=== PATIENT | female | born 1940 | race Two or more races ===

== ENCOUNTER → 2017-04-22 | Outpatient (REF) | payer MEDICARE, MEDICAID | LOC: M LABNEURO 11:16 | PROVIDERS: ATTEND Psychiatry & Neurology Neurology | DX: Z13.29 Encounter for screening for other suspected endocrine disorder (principal); Z13.21 Encounter for screening for nutritional disorder ==

== ENCOUNTER → 2017-05-03 | Outpatient (CLI) | payer MEDICARE, MEDICAID ==
--- NOTE | 2017-05-03 11:42 | REPMRS ---
Patient History The patient states she had a clinical breast exam in 04/2017. Patient is postmenopausal. Family history of colorectal cancer in mother. Digital Woman Screen Mammo: May 03, 2017 - Exam #: [id number] Bilateral CC and MLO view(s) were taken. Technologist: Cassi Jaar, Technologist Prior study comparison: March 23, 2016, digital woman screen mammo performed at [facility] to [facility]. March 14, 2015, digital woman screen mammo performed at [facility] to [facility]. FINDINGS: There are scattered fibroglandular densities. There has been no change in the appearance of the mammogram from the prior studies. There is a mild amount of residual fibroglandular tissue which is fairly symmetric. There is no interval development of dominant mass, architectural distortion, or clustered microcalcification suggestive of malignancy. ASSESSMENT: BI-RADS/ACR category 1 mammogram. Negative. Recommendation Routine screening mammogram in 1 year (for women over age 40). This mammogram was interpreted with the aid of an FDA-approved computer-aided dectection system. Electronically Signed By: Angel Hayes MD 05/03/17 [id number]
== END ==
LOC: M WHC 10:16
PROVIDERS: ATTEND Nurse Practitioner Family
DX: Z01.419 Encounter for gynecological examination (general) (routine) without abnormal findings (principal); Z12.31 Encounter for screening mammogram for malignant neoplasm of breast; Z78.0 Asymptomatic menopausal state; Z12.12 Encounter for screening for malignant neoplasm of rectum
CPT/HCPCS: 82270; G0101; G0202

== ENCOUNTER → 2017-07-26 | Outpatient (CLI) | payer MEDICARE, MEDICAID ==
--- NOTE | 2017-07-26 16:18 | REP ---
Left ankle four views: There is circumferential soft tissue edema. There is no fracture or dislocation. No calcifications or foreign bodies. Impression: Circumferential soft tissue edema. No fracture. Signed by Angel Guerrero MD 07/26/2017 04:09 P
[2017-07-26 17:56] LABS: BASO # 0.1 10^3/uL (0.0-0.2); BASO % 1.1 % (0.0-1.0); EOS # 0.1 10^3/uL (0.0-0.50); EOS % 1.4 % (0.0-3.0); IMMATURE GRANULOCYTE % 0.3 % (0-0); MEAN CORPUSCULAR HEMOGLOBIN 31.2 pg (27.0-33.0); MEAN CORPUSCULAR HGB CONC 33.7 g/dl (32.0-36.5); MEAN CORPUSCULAR VOLUME 92.8 fl (80.0-96.0); MONO # 0.7 10^3/uL (0.0-0.8); MONO % 10.7 % (0.0-5.0); NEUTROPHILS # 3.5 10^3/uL (1.8-7.7); NEUTROPHILS % 54.5 % (36.0-66.0); PLATELET COUNT, AUTOMATED 266 10^3/uL (150-450); RED CELL DISTRIBUTION WIDTH 12.8 % (11.5-14.5); WHITE BLOOD COUNT 6.4 10^3/uL (4.0-10.0)
[2017-07-26 18:14] LABS: ALBUMIN 3.9 GM/DL (3.2-5.2); ALBUMIN/GLOBULIN RATIO 1.39 (1.00-1.93); ALKALINE PHOSPHATASE 93 U/L (45-117); ALT/SGPT 20 U/L (12-78); ANION GAP 7 MEQ/L (8-16); AST/SGOT 21 U/L (7-37); BILIRUBIN,TOTAL 0.2 MG/DL (0.2-1.0); BLOOD UREA NITROGEN 26 MG/DL (7-18); CALCIUM LEVEL 9.5 MG/DL (8.8-10.2); CARBON DIOXIDE LEVEL 30 MEQ/L (21-32); CHLORIDE LEVEL 105 MEQ/L (98-107); CREATININE FOR GFR 0.78 MG/DL (0.55-1.02); FREE T4 1.03 NG/DL (0.76-1.46); GLOMERULAR FILTRATION RATE > 60.0 (>39); GLUCOSE, FASTING 97 MG/DL (83-110); POTASSIUM SERUM 4.6 MEQ/L (3.5-5.1); SODIUM LEVEL 142 MEQ/L (136-145); TOTAL PROTEIN 6.7 GM/DL (6.4-8.2)
== END ==
LOC: M WUC 14:44
PROVIDERS: ATTEND Family Medicine
DX: M25.472 Effusion, left ankle (principal); E03.9 Hypothyroidism, unspecified; R60.9 Edema, unspecified

== ENCOUNTER → 2018-01-09 | Outpatient (CLI) | payer MEDICARE, MEDICAID ==
[2018-01-09 14:26] LABS: THYROID STIMULATING HORMONE 0.901 uIU/ML (0.358-3.740)
[2018-01-09 14:26] LABS: FREE T3 2.5 PG/ML (2.2-4.0)
== END ==
LOC: M SMT 11:03
DX: E03.9 Hypothyroidism, unspecified (principal)
CPT/HCPCS: 84443

== ENCOUNTER → 2018-08-01 | Outpatient (CLI) | payer MEDICARE, MEDICAID ==
--- NOTE | 2018-08-01 11:20 | REPMRS ---
Patient History The patient states she had a clinical breast exam in 07/29 Family history of colorectal cancer in mother. Digital Woman Screen Mammo: August 01, 2018 - Exam #: [id number] Bilateral CC and MLO view(s) were taken. Technologist: Babita Fairas, Technologist Prior study comparison: May 03, 2017, digital woman screen mammo performed at [facility]. March 23, 2016, digital woman screen mammo performed at [facility]. March 14, 2015, digital woman screen mammo performed at [facility]. FINDINGS: The breast tissue is heterogeneously dense. This may lower the sensitivity of mammography. There is a moderate amount of heterogeneously dense fibroglandular tissue which is fairly symmetric. There is no interval development of dominant mass, architectural distortion, or clustered microcalcification typical of malignancy. There has been no change in the appearance of the mammogram from the prior studies. 3-D tomosynthesis shows no additional findings. Assessment: BI-RADS/ACR category 1 mammogram. Negative. Recommendation Routine screening mammogram of both breasts in 1 year (for women over age 40). This patient's Lifetime Breast Cancer RIsk is estimated at 2.7 %. This mammogram was interpreted with the aid of an FDA-approved computer-aided dectection system. Electronically Signed By: Paul Robles MD 08/01/18 1330
== END ==
LOC: M WHC 08:14
PROVIDERS: ATTEND Nurse Practitioner Family
DX: Z01.419 Encounter for gynecological examination (general) (routine) without abnormal findings (principal); Z12.31 Encounter for screening mammogram for malignant neoplasm of breast; Z80.0 Family history of malignant neoplasm of digestive organs; Z12.12 Encounter for screening for malignant neoplasm of rectum
CPT/HCPCS: 77063; 77067; 82270; G0101

== ENCOUNTER → 2019-04-22 | Outpatient (REF) | payer MEDICARE, MEDICAID ==
[2019-04-22 12:08] LABS: HEMATOCRIT 44.6 % (36.0-47.0); HEMOGLOBIN 14.9 g/dl (12.0-15.5); MEAN CORPUSCULAR HEMOGLOBIN 31.2 pg (27.0-33.0); MEAN CORPUSCULAR HGB CONC 33.4 g/dl (32.0-36.5); MEAN CORPUSCULAR VOLUME 93.3 fl (80.0-96.0); PLATELET COUNT, AUTOMATED 246 10^3/uL (150-450); RED BLOOD COUNT 4.78 10^6/uL (4.00-5.40)
[2019-04-22 12:44] LABS: ALT/SGPT 25 U/L (12-78); BILIRUBIN,TOTAL 0.4 MG/DL (0.2-1.0); BLOOD UREA NITROGEN 20 MG/DL (7-18); CALCIUM LEVEL 10.6 MG/DL (8.8-10.2); CARBON DIOXIDE LEVEL 30 MEQ/L (21-32); CHLORIDE LEVEL 105 MEQ/L (98-107); CREATININE FOR GFR 0.77 MG/DL (0.55-1.30); FREE T3 2.2 PG/ML (2.2-4.0); FREE T4 1.03 NG/DL (0.76-1.46); GLOMERULAR FILTRATION RATE > 60.0 (>39); GLUCOSE, FASTING 74 MG/DL (70-100); POTASSIUM SERUM 4.3 MEQ/L (3.5-5.1); SODIUM LEVEL 142 MEQ/L (136-145); TOTAL 25(OH) VITAMIN D 36.4 NG/ML (30.0-100.0); TOTAL PROTEIN 6.8 GM/DL (6.4-8.2)
[2019-04-22 12:45] LABS: VITAMIN B12 LEVEL > 2000 PG/ML (247-911)
== END ==
LOC: SKLABADC 10:26
PROVIDERS: ATTEND Family Medicine
DX: E55.9 Vitamin D deficiency, unspecified (principal); F03.90 Unspecified dementia, unspecified severity, without behavioral disturbance, psychotic disturbance, mood disturbance, and anxiety; E53.8 Deficiency of other specified B group vitamins; E03.9 Hypothyroidism, unspecified

== ENCOUNTER → 2019-08-06 | Outpatient (CLI) | payer MEDICAID, MEDICARE, OTHER ==
--- NOTE | 2019-08-06 12:08 | REPMRS ---
Patient History The patient states she had a clinical breast exam in July 2019.Family history of colorectal cancer in mother. 3D TOMOSYNTHESIS WAS PERFORMED. [facility] lifetime risk for breast cancer is 2.4%. Digital Woman Screen Mammo: August 06, 2019 - Exam #: [id number] Bilateral CC and MLO view(s) were taken. Technologist: Minda Scott, Technologist Prior study comparison: August 01, 2018, bilateral digital woman screen mammo performed at [facility] [place]. May 03, 2017, digital woman screen mammo performed at [facility] [place]. FINDINGS: There are scattered fibroglandular densities. There has been no change in the appearance of the mammogram from the prior studies. There is a mild amount of residual fibroglandular tissue which is fairly symmetric. There is no interval development of dominant mass, architectural distortion, or clustered microcalcification suggestive of malignancy. Assessment: BI-RADS/ACR category 1 mammogram. Negative Mammogram. Recommendation Routine screening mammogram in 1 year (for women over age 40). This mammogram was interpreted with the aid of an FDA-approved computer-aided dectection system. Electronically Signed By: Angel Hayes MD 08/06/19 [id number]
== END ==
LOC: M WHC 09:31
PROVIDERS: ATTEND Nurse Practitioner Family
DX: Z01.419 Encounter for gynecological examination (general) (routine) without abnormal findings (principal); Z12.31 Encounter for screening mammogram for malignant neoplasm of breast; Z80.0 Family history of malignant neoplasm of digestive organs; Z12.12 Encounter for screening for malignant neoplasm of rectum
CPT/HCPCS: 77063; 77067; 82270; G0101

== ENCOUNTER → 2019-08-17 | Outpatient (REF) | payer MEDICARE ==
[2019-08-17 14:15] LABS: FREE T4 1.15 NG/DL (0.76-1.46); THYROID STIMULATING HORMONE 3.39 uIU/ML (0.358-3.740)
== END ==
LOC: SKLABADC 11:45
PROVIDERS: ATTEND Family Medicine
DX: E03.9 Hypothyroidism, unspecified (principal)

== ENCOUNTER → 2020-08-09 | Outpatient (CLI) | payer MEDICARE ==
--- NOTE | 2020-08-09 10:42 | REPMRS ---
Patient History The patient states she had a clinical breast exam in 07/2020 Family history of colorectal cancer in mother. Digital Woman Screen Mammo: August 09, 2020 - Exam #: [id number] Bilateral CC and MLO view(s) were taken. Technologist: Babita Farias, Technologist Prior study comparison: August 06, 2019, bilateral digital woman screen mammo performed at [facility]. August 01, 2018, bilateral digital woman screen mammo performed at [facility]. May 03, 2017, digital woman screen mammo performed at [facility]. FINDINGS: There are scattered fibroglandular densities. The Volpara volumetric breast density category is:B. There has been no change in the appearance of the mammogram from the prior studies. There is a mild amount of scattered fibroglandular density which is fairly symmetric. There is no interval development of dominant mass, architectural distortion, or grouped microcalcification suggestive of malignancy. 3-D tomosynthesis shows no additional findings. Assessment: BI-RADS/ACR category 1 mammogram. Negative Mammogram. Recommendation Routine screening mammogram of both breasts in 1 year (for women over age 40). This patient's [facility] Lifetime Breast Cancer Risk is estimated at 2.1 %. This mammogram was interpreted with the aid of an FDA-approved computer-aided dectection system. Electronically Signed By: Paul Robles MD 08/09/20 [id number]
== END ==
LOC: M WHC 09:07
PROVIDERS: ATTEND Nurse Practitioner Family
DX: Z01.419 Encounter for gynecological examination (general) (routine) without abnormal findings (principal); Z12.31 Encounter for screening mammogram for malignant neoplasm of breast; Z80.0 Family history of malignant neoplasm of digestive organs; Z12.12 Encounter for screening for malignant neoplasm of rectum
CPT/HCPCS: 77063; 77067; 82270; G0101

== ENCOUNTER 2020-08-19 00:15 | Observation (INO) | payer MEDICARE, MEDICAID ==
[~2020-08-19] VITALS: Ht 170.2 cm; Wt 70.5 kg
[2020-08-19] MEDS ORDERED: LEVO88TA3 (00:39)
--- NOTE | 2020-08-19 02:33 | REPVR ---
PROCEDURE INFORMATION: Exam: XR Complete Acute Abdomen Series Exam date and time: 08/19/2020 1:58 AM Age: 80 years old Clinical indication: Abdominal pain; Additional info: Abd pain TECHNIQUE: Imaging protocol: XR complete acute abdomen series, including 2 or more views of the abdomen and a single view chest. COMPARISON: No relevant prior studies available. FINDINGS: Lungs: Normal. No consolidation. Pleural space: Normal. No pneumothorax. Heart/Mediastinum: Normal. No cardiomegaly. Gastrointestinal tract: Mild gas in the GI tract primarily gastric and colonic. A few air-fluid levels are suggested in the colon, probably sigmoid colon. Some small bowel segments in the lower abdomen or pelvis are not excluded. Intraperitoneal space: No free air. Bones/joints: Normal. No acute fracture. Soft tissues: Normal. IMPRESSION: 1. Negative chest. 2. Air-fluid levels are noted which are thought to be colonic and may reflect diarrhea. Small bowel is not excluded and may reflect small-bowel obstruction or ileus. Electronically signed by: Shamar Arango On 08/19/2020 02:33:53 AM
[2020-08-19] MEDS ORDERED: ISOVUE-370 76% 100ML VIAL As Ordered ONE (03:08)
[2020-08-19 03:13] LABS: BASO % 0.4 % (0.0-1.0); EOS % 0.2 % (0.0-3.0); HEMATOCRIT 40.2 % (36.0-47.0); HEMOGLOBIN 12.8 g/dl (12.0-15.5); LYMPH # 1.2 10^3/uL (1.5-5.0); LYMPH % 10.5 % (24.0-44.0); MEAN CORPUSCULAR HEMOGLOBIN 29.4 pg (27.0-33.0); MEAN CORPUSCULAR HGB CONC 31.8 g/dl (32.0-36.5); MEAN CORPUSCULAR VOLUME 92.4 fl (80.0-96.0); MONO # 0.7 10^3/uL (0.0-0.8); MONO % 6.3 % (0.0-5.0); NEUTROPHILS # 9.3 10^3/uL (1.5-8.5); NEUTROPHILS % 82.2 % (36.0-66.0); PLATELET COUNT, AUTOMATED 229 10^3/uL (150-450); RED BLOOD COUNT 4.35 10^6/uL (4.00-5.40); WHITE BLOOD COUNT 11.3 10^3/uL (4.0-10.0)
--- NOTE | 2020-08-19 03:45 | REPVR ---
PROCEDURE INFORMATION: Exam: CT Abdomen And Pelvis With Contrast Exam date and time: 08/19/2020 3:01 AM Age: 80 years old Clinical indication: Abdominal pain; Generalized; Additional info: R/O sbo TECHNIQUE: Imaging protocol: Computed tomography of the abdomen and pelvis with intravenous contrast. Radiation optimization: All CT scans at this facility use at least one of these dose optimization techniques: automated exposure control; mA and/or kV adjustment per patient size (includes targeted exams where dose is matched to clinical indication); or iterative reconstruction. Contrast material: ISO; Contrast volume: 100 ml; Contrast route: INTRAVENOUS (IV); COMPARISON: CR Abdomen,Flat Upright,PA CHEST 08/19/2020 1:43 AM FINDINGS: Lungs: Bibasilar coarse interstitium with minimal fibro-atelectatic change. Liver: Irregular and slightly lobular low-attenuation focus in the central right hepatic lobe measuring 2.3 x 2.3 x 3.4 cm which is nonspecific. Gallbladder and bile ducts: Normal. No calcified stones. No ductal dilation. Pancreas: Normal. No ductal dilation. Spleen: Normal. No splenomegaly. Adrenal glands: Normal. No mass. Kidneys and ureters: Normal. No hydronephrosis. Stomach and bowel: Fluid throughout most of the colon to the rectosigmoid and rectum suggesting diarrhea. Borderline small-bowel distention with multiple air-fluid levels with normal distal ileum consistent with small-bowel obstruction. A point of transition is not identified. Appendix: There are no changes of appendicitis. A normal appendix is not seen. Intraperitoneal space: Minimal fluid in the pelvis which is nonspecific. Vasculature: There is mild calcification of the abdominal aorta with extension into the iliac arteries. Lymph nodes: Unremarkable. No enlarged lymph nodes. Urinary bladder: Unremarkable as visualized. Reproductive: Unremarkable as visualized. Bones/joints: Lower lumbar facet arthropathy with mild anterolisthesis at L4-L5. Soft tissues: Unremarkable. IMPRESSION: 1. Bibasilar coarse interstitium with minimal fibro-atelectatic change. 2. Irregular and somewhat lobular low-attenuation area in the central right hepatic lobe measuring 2.3 x 2.3 x 3.4 cm which is nonspecific. 3. Fluid throughout most of the colon to the level of the sigmoid suggesting diarrhea. 4. Borderline small bowel distention with air-fluid levels consistent with small-bowel obstruction. Enteritis is not excluded. Electronically signed by: Shamar Arango On 08/19/2020 03:45:32 AM
[2020-08-19] MEDS ORDERED: SYNT88TA2 PO (05:56)
[2020-08-19] MEDS ORDERED: LEVOTHYROXINE 88MCG TABLET (0.088 MG) PO SCH (06:00)
--- NOTE | 2020-08-19 06:11 | HPEPDOC ---
[facility] Medical History & Physical Date of Admission Aug 19, 2020 Date of Service: Aug 19, 2020 History and Physical CHIEF COMPLAINT: abdominal HISTORY OF PRESENT ILLNESS: 80-year-old female with a history of hypothyroidism and dementia, presenting from home with a one-day history of abdominal pain. Family reports patient having a bowel movement shortly before ambulance arrival. On arrival to the ED imaging including x-ray and CT showing ileus versus small bowel obstruction. Vital signs are stable. Work unremarkable apart from mild elevation in WBC to 11.3. Patient denies abdominal pain, n/v/d, chest pain, SOB, fevers, chills. PAST MEDICAL HISTORY: hypothyroidism dementia PAST SURGICAL HISTORY: no history of abdominal surgery SOCIAL HISTORY: non smoker non drinker no illicits Lives at home with daughter, Leidy (healthcare proxy) FAMILY HISTORY: unable to obtain ALLERGIES: Please see below. REVIEW OF SYSTEMS: 10 point ROS conducted, positives in HPI HOME MEDICATIONS: Please see below. PHYSICAL EXAMINATION: VITAL SIGNS: please see below General: NAD, comfortable HEENT: PERRLA, EOMI, sclerae clear Neck: supple, normal ROM, no JVD Respiratory: lungs CTAB, no wheeze, no rales, no crackles CVS: RRR, normal S1, S2, no murmurs Abdo: soft, no masses, no hepatosplenomegaly, BS+, no rebound tenderness Extremities: no edema, pulses 2+ MSK: no joint deformities, normal ROM Neuro: no focal neuro deficits, moving all 4 extremities, CN2-12 intact. Strength 5/5 in all 4 extremities. No nystagmus. Psych: calm, cooperative, AAO x 1 LABORATORY DATA: See below. IMAGING: Abdomen XR (08/19/20): 1. Negative chest. 2. Air-fluid levels are noted which are thought to be colonic and may reflect diarrhea. Small bowel is not excluded and may reflect small-bowel obstruction or ileus. CT abdo pelvis (08/19/20): 1. Bibasilar coarse interstitium with minimal fibro-atelectatic change. 2. Irregular and somewhat lobular low-attenuation area in the central right hepatic lobe measuring 2.3 x 2.3 x 3.4 cm which is nonspecific. 3. Fluid throughout most of the colon to the level of the sigmoid suggesting diarrhea. 4. Borderline small bowel distention with air-fluid levels consistent with small-bowel obstruction. Enteritis is not excluded. MICROBIOLOGY: Please see below. ASSESSMENT: 80 yo F with hypothyroidism and dementia, presented with abominal pa in this afternoon. CT imaging cannot exclude SBO. Patient had a BM prior to ambulance arrival. Will admit for obs. . PLAN: #Ileus vs SBO: - NPO - No NGT at this time as not vomiting - abdo exams, monitor for BM, flatus. - last BM evening on 09/01 - Check lactic acid #Hypothyroid - resume levothyroxine DVT ppx: lovenox Dispo: admission expected to last < 2 midnights. Admitted as OBS. Vital Signs Vital Signs Date Time Temp Pulse Resp B/P (MAP) Pulse Ox O2 Delivery O2 Flow Rate FiO2 08/19/20 04:53 72 08/19/20 04:45 17 130/66 (87) Room Air 08/19/20 03:15 98 08/19/20 00:24 97.8 Laboratory Data Labs 24H Laboratory Tests 2 08/19/20 01:25: Urine Color NOE, Urine Appearance HAZY, Urine pH 5.0, Urine Specific [place] 1.027, Urine Protein 1+H, Urine Glucose (UA) NEGATIVE, Urine Ketones NEGATIVE, Urine Blood NEGATIVE, Urine Nitrite NEGATIVE, Urine Bilirubin 1+H, Urine Urobilinogen 2.0H, Urine Leukocyte Esterase NEGATIVE, Urine WBC (Auto) 2, Urine RBC (Auto) 2, Urine Hyaline Casts (Auto) 8, Urine Bacteria (Auto) NEGATIVE, Urine Squamous Epithelial Cells 0, Urine Mucus (Auto) LARGE, Urine Sperm (Auto) 08/19/20 02:58: Immature Granulocyte % (Auto) 0.4, Neutrophils (%) (Auto) 82.2H, Lymphocytes (%) (Auto) 10.5L, Monocytes (%) (Auto) 6.3H, Eosinophils (%) (Auto) 0.2, Basophils (%) (Auto) 0.4, Neutrophils # (Auto) 9.3H, Lymphocytes # (Auto) 1.2L, Monocytes # (Auto) 0.7, Eosinophils # (Auto) 0.0, Basophils # (Auto) 0.0, Nucleated Red Blood Cells % (auto) 0.0 08/19/20 03:00: POC Glucose (Misc Panel) 111H, POC Sodium (Misc Panel) 139, POC Potassium (Misc Panel) 4.5, POC Chloride (Misc Panel) 104, POC Total CO2 (Misc Panel) 25.0, POC Blood Urea Nitrogen (Misc Panel 25, POC Ionized Calcium (Misc Panel) 5.3, POC Creatinine (Misc Panel) 0.7, POC Hematocrit (Misc Panel) 41.0 CBC/BMP Laboratory Tests 08/19/20 02:58 Microbiology Microbiology 08/19/20 Respiratory Virus Panel (PCR) ([facility]) - Final, Complete Home Medications Scheduled Bisacodyl (Dulcolax) 5 Mg Tablet.dr, 5 MG PO DAILY for constipation Levothyroxine Sodium (Synthroid) 88 Mcg Tablet, 88 MCG PO DAILY Scheduled PRN Ondansetron HCl (Zofran) 4 Mg Tablet, 1 TAB PO Q6-8HP PRN for nausea/vomiting Allergies Coded Allergies: No Known Allergies (Unverified , 08/19/20) A-FIB/CHADSVASC A-FIB History Current/History of A-Fib/PAF?: No Current PO Anticoag Therapy: No VILMA ALEJANDRA MD Aug 19, 2020 06:11
[2020-08-19] MEDS ORDERED: ENOXAPARIN 40MG/0.4ML SYRINGE (J1650 PER 10MG) SC SCH (09:00)
[2020-08-19 09:04] VITALS: BP 150/72
--- NOTE | 2020-08-19 09:20 | REP ---
INDICATION: sbo COMPARISON: None. TECHNIQUE: Supine view of the abdomen and pelvis. FINDINGS: Bowel gas pattern is nonspecific and without obstruction or perforation. No organomegaly. Contrast fills the bladder. No abnormal calcifications. Skeletal structures intact. IMPRESSION: Nonspecific bowel gas pattern. <Electronically signed by Shawn Barroso > 08/19/20 0917
[2020-08-19 13:14] VITALS: BP 166/81
[2020-08-19] MEDS ORDERED: DULC5TAB PO (15:14)
[2020-08-19] MEDS ORDERED: ZOFR4TAB16 PO (15:15)
[2020-08-19] MEDS ORDERED: FLUBLOK(EGG FREE)(QUAD)INFLUENZA VACC 0.5ML SYRINGE 18YRS & OLDER IM ONE (16:00)
[2020-08-19] MEDS ORDERED: PREVNAR 13 VACCINE SYRINGE IM ONE (16:00)
--- NOTE | 2020-08-19 21:35 | ECGEPIP ---
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
--- NOTE | 2020-08-21 21:13 | DS.PDOC ---
Discharge Summary General Date of Admission Aug 19, 2020 at 06:08 Date of Discharge 08/19/20 Discharge Summary PROCEDURES PERFORMED DURING STAY: [None]. ADMITTING DIAGNOSES: Ileus Hypothyroid DISCHARGE DIAGNOSES: Ileus Hypothyroid COMPLICATIONS/CHIEF COMPLAINT: Dementia,Sbo. HISTORY OF PRESENT ILLNESS:80-year-old female with a history of hypothyroidism and dementia, presenting from home with a one-day history of abdominal pain. Family reports patient having a bowel movement shortly before ambulance arrival. On arrival to the ED imaging including x-ray and CT showing ileus versus small bowel obstruction. Vital signs are stable. Work unremarkable apart from mild e levation in WBC to 11.3. Patient denies abdominal pain, n/v/d, chest pain, SOB, fevers, chills HOSPITAL COURSE: Ileus resolved after NG tube placement DISCHARGE MEDICATIONS: Please see below. ALLERGIES: Please see below. PHYSICAL EXAMINATION ON DISCHARGE: VITAL SIGNS: Please see below. General: NAD, comfortable HEENT: PERRLA, EOMI, sclerae clear Neck: supple, normal ROM, no JVD Respiratory: lungs CTAB, no wheeze, no rales, no crackles CVS: RRR, normal S1, S2, no murmurs Abdo: soft, no masses, no hepatosplenomegaly, BS+, no rebound tenderness Extremities: no edema, pulses 2+ MSK: no joint deformities, normal ROM Neuro: no focal neuro deficits, moving all 4 extremities, CN2-12 intact. Strength 5/5 in all 4 extremities. No nystagmus. Psych: calm, cooperative, AAO x 1 LABORATORY DATA: Please see below. IMAGING: Exam: CT Abdomen And Pelvis With Contrast Exam date and time: 08/19/2020 3:01 AM Age: 80 years old Clinical indication: Abdominal pain; Generalized; Additional info: R/O sbo TECHNIQUE: Imaging protocol: Computed tomography of the abdomen and pelvis with intravenous contrast. Radiation optimization: All CT scans at this facility use at least one of these dose optimization techniques: automated exposure control; mA and/or kV adjustment per patient size (includes targeted exams where dose is matched to clinical indication); or iterative reconstruction. Contrast material: ISO; Contrast volume: 100 ml; Contrast route: INTRAVENOUS (IV); COMPARISON: CR Abdomen,Flat Upright,PA CHEST 08/19/2020 1:43 AM FINDINGS: Lungs: Bibasilar coarse interstitium with minimal fibro-atelectatic change. Liver: Irregular and slightly lobular low-attenuation focus in the central right hepatic lobe measuring 2.3 x 2.3 x 3.4 cm which is nonspecific. Gallbladder and bile ducts: Normal. No calcified stones. No ductal dilation. Pancreas: Normal. No ductal dilation. Spleen: Normal. No splenomegaly. Adrenal glands: Normal. No mass. Kidneys and ureters: Normal. No hydronephrosis. Stomach and bowel: Fluid throughout most of the colon to the rectosigmoid and rectum suggesting diarrhea. Borderline small-bowel distention with multiple air-fluid levels with normal distal ileum consistent with small-bowel obstruction. A point of transition is not identified. Appendix: There are no changes of appendicitis. A normal appendix is not seen. Intraperitoneal space: Minimal fluid in the pelvis which is nonspecific. Vasculature: There is mild calcification of the abdominal aorta with extension into the iliac arteries. Lymph nodes: Unremarkable. No enlarged lymph nodes. Urinary bladder: Unremarkable as visualized. Reproductive: Unremarkable as visualized. Bones/joints: Lower lumbar facet arthropathy with mild anterolisthesis at L4-L5. Soft tissues: Unremarkable. IMPRESSION: 1. Bibasilar coarse interstitium with minimal fibro-atelectatic change. 2. Irregular and somewhat lobular low-attenuation area in the central right hepatic lobe measuring 2.3 x 2.3 x 3.4 cm which is nonspecific. 3. Fluid throughout most of the colon to the level of the sigmoid suggesting diarrhea. 4. Borderline small bowel distention with air-fluid levels consistent with small-bowel obstruction. Enteritis is not excluded. Electronically signed by: Chiquita uRsh On 08/19/2020 03:45:32 AM DD: CHIQUITA RUSH MD 08/19/20 0301 DT: KAVON 08/19/20 0345 DS: ZACH 08/19/20 0345 [~ rep ct labl] PROGNOSIS: Fair ACTIVITY: [As tolerated]. DIET: Soft mechanical DISPOSITION: 01 Home, Self-Care. ITEMS TO FOLLOWUP ON ON OUTPATIENT: Follow-up with PCP DISCHARGE CONDITION: [Stable]. TIME SPENT ON DISCHARGE: Greater than 20 minutes. Vital Signs/I&Os Vital Signs Date Time Temp Pulse Resp B/P (MAP) Pulse Ox O2 Delivery O2 Flow Rate FiO2 08/19/20 13:14 97.9 86 16 166/81 (109) 95 Room Air Microbiology Microbiology 08/19/20 Respiratory Virus Panel (PCR) ([facility]) - Final, Complete Discharge Medications Scheduled Bisacodyl (Dulcolax) 5 Mg Tablet.dr, 5 MG PO DAILY for constipation Levothyroxine Sodium (Synthroid) 88 Mcg Tablet, 88 MCG PO DAILY, (Reported) Scheduled PRN Ondansetron HCl (Zofran) 4 Mg Tablet, 1 TAB PO Q6-8HP PRN for nausea/vomiting Allergies Coded Allergies: No Known Allergies (Unverified , 08/19/20) DARYL ANN DO Aug 21, 2020 21:13
== END 2020-08-19 17:17 | disposition home or self-care (01) ==
LOC: M ED 00:15 → M ED INP 00:16 → UNDOADMOB 06:08 → INTOOBSV 06:08 → M ED INP 06:08 → ENRESERV 07:40 → M ED INP 09:03 → M MSPAV 09:03 → UNDODISOB 17:17
PROVIDERS: ADMIT Family Medicine; ATTEND Internal Medicine
DX: K56.7 Ileus, unspecified (principal); F03.90 Unspecified dementia, unspecified severity, without behavioral disturbance, psychotic disturbance, mood disturbance, and anxiety; E03.9 Hypothyroidism, unspecified; Z79.899 Other long term (current) drug therapy
CPT/HCPCS: 36415; 51701; 74018; 74021; 74177; 80047; 81001; 83605; 85025; 87486; 87581; 87633; 87798; 90670; 90682; 93005; 96372; 99285; G0008; G0009; G0378; J1650; Q9967